=== PATIENT | male | born 1975 | race African-American/Black ===

== ENCOUNTER 2016-11-10 19:50 | Inpatient (IN) | payer OTHER ==
[~2016-11-10] VITALS: Ht 188 cm; Wt 151.2 kg
[2016-11-10 20:54] LABS: BASOPHIL % 1.8 % (0-2); PLATELET COUNT 243 x10^3mcL (130-400)
[2016-11-10 20:57] LABS: CALCIUM 8.9 mg/dL (8.5-10.1); CREATININE SERUM 1.5 mg/dL (0.7-1.3); POTASSIUM SERUM 3.3 mmol/L (3.5-5.1)
[2016-11-10 21:03] LABS: ALBUMIN 3.4 g/dL (3.4-5.0); BILIRUBIN TOTAL 0.21 mg/dL (0.20-1.00); TOTAL PROTEIN, SERUM 6.6 g/dL (6.4-8.2)
[2016-11-10 21:47] LABS: CK-MB 1.5 ng/mL (0-3.6)
[2016-11-10] MEDS ORDERED: AMITRIPTYLINE H25 MG PO (22:54)
[2016-11-10] MEDS ORDERED: BAYER ASPIRIN R81 MG PO (22:55)
[2016-11-10] MEDS ORDERED: LIPITOR40 MG PO (22:56)
[2016-11-10] MEDS ORDERED: MICROZIDE12.5 MG PO (22:57)
[2016-11-10] MEDS ORDERED: IBUPROFEN400 MG PO (22:57)
[2016-11-10] MEDS ORDERED: LABETALOL20 MG/4 ML PO (22:58)
[2016-11-10] MEDS ORDERED: LISINOPRIL2.5 MG PO (22:59)
[2016-11-10] MEDS ORDERED: XOPENEX HF0.045 MG/1 INH (22:59)
[2016-11-10] MEDS ORDERED: REMERON30 MG PO (23:00)
[2016-11-10] MEDS ORDERED: METFORMIN HYD1000 M2 PO (23:00)
[2016-11-10] MEDS ORDERED: PROCARDIA XL90 MG PO (23:01)
[2016-11-10] MEDS ORDERED: GEODON60 MG PO (23:02)
[2016-11-10] MEDS ORDERED: TAMSULOSIN HYD0.4 M1 PO (23:02)
[2016-11-10 23:19] VITALS: BP 168/86
[2016-11-11 06:06] LABS: BASOPHIL % 0.4 % (0-2); PLATELET COUNT 238 x10^3mcL (130-400)
[2016-11-11 06:34] VITALS: BP 150/84
[2016-11-11 06:35] LABS: T4(THYROXINE) 7.3 ug/dL (4.7-13.3)
[2016-11-11 09:10] LABS: ERYTHROCYTE SED RATE 29 mm/hr (0-15)
[2016-11-11 09:49] VITALS: BP 150/78
[2016-11-11 14:06] VITALS: BP 150/78
[2016-11-11 14:24] VITALS: BP 162/95
[2016-11-11 18:07] VITALS: BP 157/68
[2016-11-12 10:34] LABS: RAPID PLASMA REAGIN Non Reactive (Non Reactive); RHEUMATOID ARTHRITIS FACTOR <10.0 IU/mL (0.0-13.9)
== END 2016-11-11 21:04 | disposition other institution (70) | DRG 638 ==
LOC: ED 19:50 → DU 22:14
PROVIDERS: Emergency Medicine; ADMIT Internal Medicine
DX: E11.65 Type 2 diabetes mellitus with hyperglycemia (principal); I69.354 Hemiplegia and hemiparesis following cerebral infarction affecting left non-dominant side; N17.9 Acute kidney failure, unspecified; G35 Multiple sclerosis; R55 Syncope and collapse; I10 Essential (primary) hypertension; J45.909 Unspecified asthma, uncomplicated; E87.6 Hypokalemia; W18.39XA Other fall on same level, initial encounter; Y93.89 Activity, other specified; Y92.148 Other place in prison as the place of occurrence of the external cause; Y99.8 Other external cause status
CPT/HCPCS: 82962; 85378; 86431; J1815; J7030; Q0092